=== PATIENT | male | born 1930 | race Caucasian/White ===

== ENCOUNTER 2019-01-01 10:53 | Inpatient (IN) | payer OTHER, MEDICAID ==
[~2019-01-01] VITALS: Ht 172.7 cm; Wt 76.7 kg
[2019-01-01 10:53] VITALS: BP 77/50
[~2019-01-01 10:53] MED LIST: ASPI-1718 PO; CLON0.1T42 PO; DIL100I PO; DIVA250E1 PO; KEP500 PO; LACT1TAB34 PO; LEVA1.255 IH; METO-744 PO; MIRABULK PO; MONT10TA35 PO; PANT40EC PO; PUL.5N INH; TAMS0.4C96 PO; [UNRECOGNIZED DRUG - CODE] PO
[2019-01-01] MEDS ORDERED: NACL 0.9% 1,000 ML IV ONE (11:00)
[2019-01-01] MEDS ORDERED: DIVA125E1 PO (11:10)
[2019-01-01] MEDS ORDERED: AMMONIA AROMATIC 1 INHL INH ONE (11:10)
[2019-01-01] MEDS ORDERED: FURO-570 PO (11:10)
[2019-01-01] MEDS ORDERED: MAGN400T7 PO (11:10)
[2019-01-01] MEDS ORDERED: PHEN125S PO (11:10)
[2019-01-01] MEDS ORDERED: MULT-1640 PO (11:10)
[2019-01-01] MEDS ORDERED: VITD1000 PO (11:15)
[2019-01-01] MEDS ORDERED: MIRABULK PO (11:15)
[2019-01-01] MEDS ORDERED: SENN-73 PO (11:15)
[2019-01-01] MEDS ORDERED: POTA10TE30 PO (11:15)
[2019-01-01] MEDS ORDERED: ACET-2619 PO (11:16)
[2019-01-01 11:26] LABS: BASOPHILS % (AUTO) 0.7 % (0.0-2.0); EOSINOPHILS # (AUTO) 0.2 K/uL (0-0.4); EOSINOPHILS % (AUTO) 3.2 % (0.0-4.0); HEMATOCRIT 35.5 % (36-52); HEMOGLOBIN 11.6 g/dL (12.0-18.0); LYMPHOCYTES % (AUTO) 18.7 % (20.5-51.1); MEAN CORPUSCULAR HEMOGLOBIN 29 pg (27-31); MEAN CORPUSCULAR HGB CONC 33 g/dL (33-37); MEAN CORPUSCULAR VOLUME 88.8 fL (80-94); MONOCYTES # (AUTO) 0.4 K/uL (0.8-1.0); MONOCYTES % (AUTO) 8.7 % (1.7-9.3); NEUTROPHILS # (AUTO) 3.5 K/uL (1.8-7.7); NEUTROPHILS % (AUTO) 68.7 % (42.2-75.2); PLATELET COUNT (AUTO) 139 K/uL (140-450); RED CELL DISTRIBUTION WIDTH 15.5 % (11.6-13.7); WHITE BLOOD COUNT (AUTO) 5.1 K/uL (4.8-10.8)
[2019-01-01 11:47] LABS: APPEARANCE,URINE CLOUDY (CLEAR); BILIRUBIN,URINE NEGATIVE (NEGATIVE); BLOOD, URINE 2+ (NEGATIVE); COLOR,URINE YELLOW (YELLOW); LEUKOCYTE ESTERASE ,URINE 3+ (NEGATIVE); NITRITE, URINE POSITIVE (NEGATIVE); UGLUCOSE NEGATIVE (NEGATIVE)
[2019-01-01 11:53] LABS: PHENYTOIN (DILANTIN) 1.6 ug/ml (10.0-20.0)
[2019-01-01 12:26] LABS: WBC,URINE 80-100 /HPF (0-5)
[2019-01-01] MEDS ORDERED: cefTRIAXone 1,000 MG VIAL ONE (12:47)
[2019-01-01] MEDS: DEXT 5% / NACL 0.45% 1,000 ML IV SCH (18:24)
[2019-01-01] MEDS ORDERED: POLYETHYLENE GLYCOL 17 GM/PKT PO PRN (18:45)
[2019-01-01] MEDS ORDERED: cloNIDine 0.1 MG TAB PO PRN (18:45)
[2019-01-01] MEDS ORDERED: ACETAMINOPHEN 325 MG TAB PO PRN (18:45)
[2019-01-01 20:00] VITALS: BP 123/59
[2019-01-01] MEDS: BUDESONIDE 0.5 MG/2 ML NEBU INH SCH (21:00)
[2019-01-01] MEDS ORDERED: NON-FORMULARY ITEM (Lactobacillus Acidophilus (Acidophilus) 1 CAP) PO SCH (21:00)
[2019-01-01] MEDS ORDERED: levETIRAcetam 500 MG TAB PO SCH (21:00)
[2019-01-01] MEDS ORDERED: SENNA 8.6 MG TAB PO SCH (21:00)
[2019-01-01] MEDS ORDERED: PHENYTOIN PO SCH (21:00)
[2019-01-01] MEDS: DIVALPROEX SPRINKLES 125 MG CAPDR PO SCH (21:53)
[2019-01-01] MEDS: MAGNESIUM OXIDE 400 MG TAB PO SCH (21:53)
[2019-01-02] VITALS: BP 151/73
[2019-01-02] MEDS ORDERED: MAGNESIUM OXIDE 400 MG TAB PO PRN (02:00)
[2019-01-02] MEDS ORDERED: MAG SULF 2000 MG/WATER PREMIX 50 ML IV PRN (02:00)
[2019-01-02] MEDS ORDERED: ONDANSETRON 4 MG/2 ML VIAL IVP PRN (02:00)
[2019-01-02] MEDS ORDERED: POTASSIUM CHLORIDE 40 MEQ, LIDOCAINE 1% 25 MG in NACL 0.9% 250 ML IV PRN (02:00)
[2019-01-02] MEDS ORDERED: ACETAMINOPHEN 325 MG TAB PO PRN (02:00)
[2019-01-02] MEDS ORDERED: POTASSIUM CHLORIDE 10 MEQ TABER PO PRN (02:00)
[2019-01-02] MEDS ORDERED: ACETAMINOPHEN 650 MG SUPP RC PRN (02:00)
[2019-01-02] MEDS ORDERED: DOCUSATE SODIUM 250 MG GELCAP PO PRN (02:00)
[2019-01-02] MEDS ORDERED: LORazepam 2 MG/ML VIAL IM/IVP PRN (02:05)
[2019-01-02] MEDS: BUDESONIDE 0.5 MG/2 ML NEBU INH SCH (02:50)
[2019-01-02 04:00] VITALS: BP 136/52
[2019-01-02] MEDS: DIVALPROEX SPRINKLES 125 MG CAPDR PO SCH (05:08)
[2019-01-02] MEDS ORDERED: BUDESONIDE 0.5 MG/2 ML NEBU INH SCH (07:05)
[2019-01-02 07:17] LABS: ANION GAP 9.8 (8-16); CARBON DIOXIDE 28.5 mmol/L (21-32); CHLORIDE 107 mmol/L (98-107); CREATININE 0.7 mg/dL (0.7-1.3); GLUCOSE 80 mg/dL (74-106); POTASSIUM 3.3 mmol/L (3.5-5.1); SODIUM SERUM 142 mmol/L (136-145); UREA NITROGEN, BLOOD 11 mg/dL (7-18)
[2019-01-02] MEDS: DEXT 5% / NACL 0.45% 1,000 ML IV SCH (07:40)
[2019-01-02 08:00] VITALS: BP 137/61
[2019-01-02] MEDS ORDERED: PANTOPRAZOLE 40 MG TABEC PO SCH (08:00)
[2019-01-02] MEDS ORDERED: METOPROLOL SUCCINATE 50 MG TABER PO SCH (09:00)
[2019-01-02] MEDS ORDERED: TAMSULOSIN 0.4 MG CAP PO SCH (09:00)
[2019-01-02] MEDS ORDERED: LACTOBACILLUS RHAMNOSUS GG 1 EACH CAP PO SCH (09:00)
[2019-01-02] MEDS ORDERED: NON-FORMULARY ITEM (Multivitamin-Min/Iron/FA/Vit K (Multi-Day Plus Minerals Tablet) 1 TAB) PO SCH (09:00)
[2019-01-02] MEDS ORDERED: MULTIVITAMIN/MINERALS 1 TAB PO SCH (09:00)
[2019-01-02] MEDS ORDERED: CHOLECALCIFEROL 1,000 IU TAB PO SCH (09:00)
[2019-01-02] MEDS ORDERED: FUROSEMIDE 40 MG TAB PO SCH (09:00)
[2019-01-02] MEDS ORDERED: MONTELUKAST SODIUM 10 MG TAB PO SCH (09:00)
[2019-01-02] MEDS ORDERED: NON-FORMULARY ITEM (Metoprolol Succinate (Metoprolol Succinate Er) 25 MG) PO SCH (09:00)
[2019-01-02] MEDS ORDERED: ASPIRIN 81 MG TAB.CHEW PO SCH (09:00)
[2019-01-02] MEDS ORDERED: LEVALBUTEROL HCL 1.25 MG IH SCH (09:00)
[2019-01-02] MEDS ORDERED: POTASSIUM CHLORIDE 10 MEQ TABER PO SCH (09:00)
[2019-01-02 09:04] LABS: BASOPHILS % (AUTO) 0.3 % (0.0-2.0); EOSINOPHILS # (AUTO) 0.2 K/uL (0-0.4); EOSINOPHILS % (AUTO) 2.2 % (0.0-4.0); HEMATOCRIT 36.3 % (36-52); LYMPHOCYTES # (AUTO) 1.7 K/uL (2.0-11.5); LYMPHOCYTES % (AUTO) 21.3 % (20.5-51.1); MEAN CORPUSCULAR HEMOGLOBIN 29 pg (27-31); MEAN CORPUSCULAR HGB CONC 33 g/dL (33-37); MEAN CORPUSCULAR VOLUME 88.7 fL (80-94); MONOCYTES # (AUTO) 0.7 K/uL (0.8-1.0); NEUTROPHILS # (AUTO) 5.3 K/uL (1.8-7.7); NEUTROPHILS % (AUTO) 67.2 % (42.2-75.2); PLATELET COUNT (AUTO) 142 K/uL (140-450); RED BLOOD CELL COUNT(AUTO) 4.09 MIL/uL (4.20-6.10); RED CELL DISTRIBUTION WIDTH 15.7 % (11.6-13.7); WHITE BLOOD COUNT (AUTO) 7.9 K/uL (4.8-10.8)
[2019-01-02] MEDS: MAGNESIUM OXIDE 400 MG TAB PO SCH (09:15)
[2019-01-02 12:00] VITALS: BP 95/51
[2019-01-02] MEDS ORDERED: levETIRAcetam 500 MG TAB PO SCH (13:00)
[2019-01-02] MEDS ORDERED: DIVALPROEX 250 MG TABEC PO SCH (13:00)
[2019-01-02] MEDS ORDERED: PHENYTOIN 100 MG/4 ML UDC PO SCH (13:00)
[2019-01-02 16:00] VITALS: BP 95/55
[2019-01-02] MEDS ORDERED: LEVE1000 PO ×2 (17:23→17:24)
[2019-01-02] MEDS ORDERED: ROC2I IV (17:27)
[2019-01-04] MEDS ORDERED: PIPERACILLIN/TAZOBACTAM 3.375 GM in DEXTROSE 5% 50 ML IV SCH (18:00)
== END 2019-01-02 18:55 | DRG 101 ==
LOC: MED 10:53 → MTU 16:28
PROVIDERS: ADMIT Internal Medicine Pulmonary Disease; ATTEND Internal Medicine Pulmonary Disease
DX: G40.909 Epilepsy, unspecified, not intractable, without status epilepticus (principal); N39.0 Urinary tract infection, site not specified; N40.0 Benign prostatic hyperplasia without lower urinary tract symptoms; I50.9 Heart failure, unspecified; I11.0 Hypertensive heart disease with heart failure; J44.9 Chronic obstructive pulmonary disease, unspecified; K21.9 Gastro-esophageal reflux disease without esophagitis; Z79.82 Long term (current) use of aspirin; Z79.899 Other long term (current) drug therapy; Z87.01 Personal history of pneumonia (recurrent)
CPT/HCPCS: 36415; 36600; 70450; 71045; 80048; 80173; 80185; 81001; 82550; 82803; 82948; 83605; 84484; 85025; 87081; 87086; 87186; 92610; 93005; 94640; 96361; 96365; 99285; J0696; J7060; J7626; Q0092

== ENCOUNTER 2019-01-03 19:40 | Inpatient (IN) | payer OTHER, MEDICAID ==
[~2019-01-03] VITALS: Ht 170.2 cm; Wt 77.1 kg
[~2019-01-03 19:40] MED LIST changes: +ACET-2619 PO; +DIVA125E1 PO; +FURO-570 PO; +LEVE1000 PO; +MAGN400T7 PO; +MULT-1640 PO; +PHEN125S PO; +POTA10TE30 PO; +ROC2I IV; +SENN-73 PO; +VITD1000 PO
[2019-01-03 19:43] VITALS: BP 141/69
[2019-01-03] MEDS ORDERED: levETIRAcetam 1,000 MG in NACL 0.9% 100 ML IV ONE (20:00)
[2019-01-03] MEDS ORDERED: NACL 0.9% 500 ML IV ONE (20:00)
[2019-01-03] MEDS ORDERED: levETIRAcetam 100 MG/ML VIAL IV ONE (20:18)
[2019-01-03 20:39] LABS: BASOPHILS % (AUTO) 0.6 % (0.0-2.0); EOSINOPHILS # (AUTO) 0.1 K/uL (0-0.4); EOSINOPHILS % (AUTO) 1.4 % (0.0-4.0); HEMATOCRIT 32.9 % (36-52); HEMOGLOBIN 10.9 g/dL (12.0-18.0); LYMPHOCYTES # (AUTO) 1.4 K/uL (2.0-11.5); LYMPHOCYTES % (AUTO) 30.6 % (20.5-51.1); MEAN CORPUSCULAR HEMOGLOBIN 30 pg (27-31); MEAN CORPUSCULAR HGB CONC 33 g/dL (33-37); MONOCYTES # (AUTO) 0.4 K/uL (0.8-1.0); MONOCYTES % (AUTO) 8.8 % (1.7-9.3); NEUTROPHILS # (AUTO) 2.6 K/uL (1.8-7.7); NEUTROPHILS % (AUTO) 58.6 % (42.2-75.2); PLATELET COUNT (AUTO) 149 K/uL (140-450); RED CELL DISTRIBUTION WIDTH 15.8 % (11.6-13.7); WHITE BLOOD COUNT (AUTO) 4.5 K/uL (4.8-10.8)
[2019-01-03 20:45] LABS: APPEARANCE,URINE CLEAR (CLEAR); BILIRUBIN,URINE NEGATIVE (NEGATIVE); BLOOD, URINE TRACE-L (NEGATIVE); COLOR,URINE YELLOW (YELLOW); LEUKOCYTE ESTERASE ,URINE 1+ (NEGATIVE); NITRITE, URINE NEGATIVE (NEGATIVE); UGLUCOSE NEGATIVE (NEGATIVE)
[2019-01-03 20:51] LABS: RBC,URINE 0-5 /HPF (0-5); WBC,URINE 80-100 /HPF (0-5)
[2019-01-03 21:06] LABS: ANION GAP 13.4 (8-16); CARBON DIOXIDE 25.7 mmol/L (21-32); CHLORIDE 108 mmol/L (98-107); CREATININE 0.7 mg/dL (0.7-1.3); GLUCOSE 88 mg/dL (74-106); POTASSIUM 3.1 mmol/L (3.5-5.1); SODIUM SERUM 144 mmol/L (136-145); UREA NITROGEN, BLOOD 9 mg/dL (7-18)
[2019-01-03 21:10] LABS: ALBUMIN 2.1 g/dL (3.4-5.0); ASPARTATE AMINOTRANSFERASE 28 U/L (15-37); TOTAL BILIRUBIN 0.2 mg/dL (0.0-1.0)
[2019-01-03] MEDS ORDERED: cefTRIAXone 1,000 MG VIAL ONE (21:12)
[2019-01-03] MEDS ORDERED: KCL 20 MEQ/WATER INJ PREMIX 100 ML IV ONE (21:15)
[2019-01-03] MEDS ORDERED: ONDANSETRON 4 MG/2 ML VIAL IVP PRN (22:15)
[2019-01-03] MEDS ORDERED: MORPHINE SULFATE 2 MG/ML SYR IVP PRN (22:15)
[2019-01-03] MEDS ORDERED: LORazepam 2 MG/ML VIAL IVP PRN ×2 (22:15)
[2019-01-03] MEDS ORDERED: HYDROcodone/APAP 5/325 MG 1 TAB TAB PO PRN (22:15)
[2019-01-03] MEDS: NACL 0.9% 1,000 ML IV SCH (23:55)
[2019-01-04] VITALS: BP 141/70
[2019-01-04] MEDS ORDERED: cloNIDine 0.1 MG TAB PO PRN (02:55)
[2019-01-04] MEDS ORDERED: ACETAMINOPHEN 325 MG TAB PO PRN (02:55)
[2019-01-04] MEDS ORDERED: POLYETHYLENE GLYCOL 17 GM/PKT PO PRN (02:55)
[2019-01-04 04:00] VITALS: BP 142/68
[2019-01-04] MEDS ORDERED: PHENYTOIN PO SCH (05:00)
[2019-01-04] MEDS ORDERED: DIVALPROEX SPRINKLES 125 MG CAPDR PO SCH (05:00)
[2019-01-04] MEDS: DIVALPROEX SPRINKLES 125 MG CAPDR PO SCH ×3 (05:26→22:02)
[2019-01-04 06:59] LABS: BASOPHILS % (AUTO) 0.6 % (0.0-2.0); EOSINOPHILS # (AUTO) 0.2 K/uL (0-0.4); HEMATOCRIT 33.3 % (36-52); HEMOGLOBIN 11.1 g/dL (12.0-18.0); LYMPHOCYTES # (AUTO) 2.1 K/uL (2.0-11.5); MEAN CORPUSCULAR HEMOGLOBIN 29 pg (27-31); MEAN CORPUSCULAR HGB CONC 33 g/dL (33-37); MEAN CORPUSCULAR VOLUME 88.4 fL (80-94); MONOCYTES # (AUTO) 0.5 K/uL (0.8-1.0); MONOCYTES % (AUTO) 9.8 % (1.7-9.3); NEUTROPHILS # (AUTO) 2.7 K/uL (1.8-7.7); NEUTROPHILS % (AUTO) 48.6 % (42.2-75.2); PLATELET COUNT (AUTO) 155 K/uL (140-450); RED BLOOD CELL COUNT(AUTO) 3.77 MIL/uL (4.20-6.10); RED CELL DISTRIBUTION WIDTH 15.3 % (11.6-13.7); WHITE BLOOD COUNT (AUTO) 5.6 K/uL (4.8-10.8)
[2019-01-04 08:00] VITALS: BP 115/54
[2019-01-04] MEDS ORDERED: BUDESONIDE 0.5 MG/2 ML NEBU INH SCH (09:00)
[2019-01-04] MEDS ORDERED: LEVALBUTEROL HCL 1.25 MG IH SCH (09:00)
[2019-01-04] MEDS: ASPIRIN 81 MG TAB.CHEW PO SCH (10:25)
[2019-01-04] MEDS: LACTOBACILLUS RHAMNOSUS GG 1 EACH CAP PO SCH ×2 (10:25→21:49)
[2019-01-04] MEDS: CHOLECALCIFEROL 1,000 IU TAB PO SCH (10:25)
[2019-01-04] MEDS: levETIRAcetam 500 MG TAB PO SCH ×3 (10:26→17:28)
[2019-01-04] MEDS: MONTELUKAST SODIUM 10 MG TAB PO SCH (10:26)
[2019-01-04] MEDS: MAGNESIUM OXIDE 400 MG TAB PO SCH ×2 (10:27→21:50)
[2019-01-04] MEDS: TAMSULOSIN 0.4 MG CAP PO SCH (10:27)
[2019-01-04] MEDS: METOPROLOL SUCCINATE 50 MG TABER PO SCH (10:27)
[2019-01-04] MEDS: FUROSEMIDE 40 MG TAB PO SCH (10:27)
[2019-01-04] MEDS: MULTIVITAMIN/MINERALS 1 TAB PO SCH (10:27)
[2019-01-04] MEDS: PANTOPRAZOLE 40 MG TABEC PO SCH (10:27)
[2019-01-04] MEDS: NACL 0.9% 1,000 ML IV SCH (10:43)
[2019-01-04] MEDS: ENOXAPARIN 30 MG/0.3 ML SYR SUBQ SCH (10:44)
[2019-01-04] MEDS: POTASSIUM CHLORIDE 10 MEQ TABER PO SCH (10:57)
[2019-01-04 12:00] VITALS: BP 133/64
[2019-01-04] MEDS: PHENYTOIN 100 MG/4 ML UDC GT SCH ×2 (13:30→21:49)
[2019-01-04 16:00] VITALS: BP 119/57
[2019-01-04] MEDS: POLYVINYL ALCOHOL 1.4% OP 15 ML SOL OP SCH (17:29)
[2019-01-04 20:00] VITALS: BP 122/82
[2019-01-04] MEDS ORDERED: SENNA 8.6 MG TAB PO SCH (21:00)
[2019-01-04] MEDS: PIPERACILLIN/TAZOBACTAM 3.375 GM in DEXTROSE 5% 50 ML IV SCH (22:03)
[2019-01-05] VITALS: BP 120/75
[2019-01-05 04:00] VITALS: BP 118/63
[2019-01-05] MEDS: NACL 0.9% 1,000 ML IV SCH ×2 (05:22→11:43)
[2019-01-05] MEDS: PIPERACILLIN/TAZOBACTAM 3.375 GM in DEXTROSE 5% 50 ML IV SCH ×2 (05:25→12:52)
[2019-01-05] MEDS: DIVALPROEX SPRINKLES 125 MG CAPDR PO SCH ×2 (05:37→12:52)
[2019-01-05] MEDS: PHENYTOIN 100 MG/4 ML UDC GT SCH ×2 (05:37→12:55)
[2019-01-05 08:00] VITALS: BP 144/67
[2019-01-05] MEDS: TAMSULOSIN 0.4 MG CAP PO SCH (09:02)
[2019-01-05] MEDS: ASPIRIN 81 MG TAB.CHEW PO SCH (09:02)
[2019-01-05] MEDS: POTASSIUM CHLORIDE 10 MEQ TABER PO SCH (09:03)
[2019-01-05] MEDS: MAGNESIUM OXIDE 400 MG TAB PO SCH (09:03)
[2019-01-05] MEDS: CHOLECALCIFEROL 1,000 IU TAB PO SCH (09:03)
[2019-01-05] MEDS: FUROSEMIDE 40 MG TAB PO SCH (09:03)
[2019-01-05] MEDS: MONTELUKAST SODIUM 10 MG TAB PO SCH (09:03)
[2019-01-05] MEDS: MULTIVITAMIN/MINERALS 1 TAB PO SCH (09:04)
[2019-01-05] MEDS: levETIRAcetam 500 MG TAB PO SCH ×3 (09:04→17:01)
[2019-01-05] MEDS: METOPROLOL SUCCINATE 50 MG TABER PO SCH (09:04)
[2019-01-05] MEDS: PANTOPRAZOLE 40 MG TABEC PO SCH (09:05)
[2019-01-05] MEDS: LACTOBACILLUS RHAMNOSUS GG 1 EACH CAP PO SCH (09:05)
[2019-01-05] MEDS: ENOXAPARIN 30 MG/0.3 ML SYR SUBQ SCH (09:19)
[2019-01-05 09:28] LABS: BASOPHILS % (AUTO) 0.6 % (0.0-2.0); EOSINOPHILS # (AUTO) 0.2 K/uL (0-0.4); EOSINOPHILS % (AUTO) 4.4 % (0.0-4.0); HEMATOCRIT 37.7 % (36-52); HEMOGLOBIN 12.5 g/dL (12.0-18.0); LYMPHOCYTES # (AUTO) 2.2 K/uL (2.0-11.5); LYMPHOCYTES % (AUTO) 40.2 % (20.5-51.1); MEAN CORPUSCULAR HEMOGLOBIN 29 pg (27-31); MEAN CORPUSCULAR HGB CONC 33 g/dL (33-37); MEAN CORPUSCULAR VOLUME 88.6 fL (80-94); MONOCYTES # (AUTO) 0.4 K/uL (0.8-1.0); NEUTROPHILS # (AUTO) 2.5 K/uL (1.8-7.7); NEUTROPHILS % (AUTO) 46.8 % (42.2-75.2); PLATELET COUNT (AUTO) 181 K/uL (140-450); RED BLOOD CELL COUNT(AUTO) 4.26 MIL/uL (4.20-6.10); RED CELL DISTRIBUTION WIDTH 15.1 % (11.6-13.7); WHITE BLOOD COUNT (AUTO) 5.4 K/uL (4.8-10.8)
[2019-01-05] MEDS: POLYVINYL ALCOHOL 1.4% OP 15 ML SOL OP SCH ×3 (09:40→17:01)
[2019-01-05 09:44] LABS: ALBUMIN 2.2 g/dL (3.4-5.0); ANION GAP 13.2 (8-16); ASPARTATE AMINOTRANSFERASE 37 U/L (15-37); CARBON DIOXIDE 25.3 mmol/L (21-32); CHLORIDE 107 mmol/L (98-107); CREATININE 0.7 mg/dL (0.7-1.3); GLUCOSE 130 mg/dL (74-106); POTASSIUM 3.5 mmol/L (3.5-5.1); SODIUM SERUM 142 mmol/L (136-145); TOTAL BILIRUBIN 0.2 mg/dL (0.0-1.0); UREA NITROGEN, BLOOD 6 mg/dL (7-18)
[2019-01-05] MEDS ORDERED: BUDESONIDE 0.5 MG/2 ML NEBU INH SCH (10:15)
[2019-01-05 12:00] VITALS: BP 137/64
[2019-01-05 16:00] VITALS: BP 125/68
[2019-01-05 17:29] VITALS: BP 125/68
[2019-01-05] MEDS ORDERED: PIPE1SOL IV (18:05)
== END 2019-01-05 19:15 | DRG 690 ==
LOC: MED 19:40 → MTU 22:23
PROVIDERS: ADMIT Internal Medicine Pulmonary Disease; ATTEND Internal Medicine Pulmonary Disease
DX: N39.0 Urinary tract infection, site not specified (principal); I50.22 Chronic systolic (congestive) heart failure; G40.909 Epilepsy, unspecified, not intractable, without status epilepticus; N40.0 Benign prostatic hyperplasia without lower urinary tract symptoms; J45.909 Unspecified asthma, uncomplicated; K21.9 Gastro-esophageal reflux disease without esophagitis; I11.0 Hypertensive heart disease with heart failure; J44.9 Chronic obstructive pulmonary disease, unspecified; E87.6 Hypokalemia; E83.51 Hypocalcemia; D64.9 Anemia, unspecified; Z87.01 Personal history of pneumonia (recurrent)
CPT/HCPCS: 36415; 70450; 71045; 80053; 80173; 81001; 82948; 83605; 83735; 83880; 84484; 85025; 87040; 87081; 87086; 93005; 96365; 96368; 97110; 97116; 97161-GP; 97530; 99285; C1758; J0696; J1650; J1953; J2543; J3480; J7030; J7060; J7626